=== PATIENT | male | born 1940 | race Caucasian/White ===

== ENCOUNTER 2022-08-02 14:26 | Emergency (ER) | payer MEDICARE, BC ==
[~2022-08-02] VITALS: Ht 177.8 cm; Wt 125.0 kg
[2022-08-02 15:32] LABS: BASOPHILS % (AUTO) 0.4 % (0-1); EOSINOPHILS # (AUTO) 0.3 X10'3 (0-0.9); EOSINOPHILS % (AUTO) 2.9 % (0-6); HEMATOCRIT 40.1 % (42.0-52.0); HEMOGLOBIN 13.3 g/dl (14.0-17.9); LYMPHOCYTES # (AUTO) 2.3 X10'3 (1.1-4.8); MEAN CORPUSCULAR HEMOGLOBIN 27.9 PG (27.0-31.0); MEAN CORPUSCULAR HGB CONC 33.3 g/dL (33.0-36.5); MEAN CORPUSCULAR VOLUME 83.8 FL (78-98); MONOCYTES # (AUTO) 0.6 X10'3 (0-0.9); MONOCYTES % (AUTO) 6.5 % (2-12); NEUTROPHILS # (AUTO) 5.4 X10'3 (1.8-7.7); NEUTROPHILS % (AUTO) 63.2 % (42-75); PLATELET COUNT 226 X10'3 (140-440); RED BLOOD COUNT 4.79 X10'6 (4.70-6.10); RED CELL DISTRIBUTION WIDTH 14.6 % (11.5-14.5); WHITE BLOOD COUNT 8.6 X10'3 (4.5-11.0)
[2022-08-02 15:43] LABS: ALANINE AMINOTRANSFERASE 35 U/L (12-78); ALBUMIN 3.8 G/DL (3.4-5.0); ALKALINE PHOSPHATASE 87 IU/L (46-116); ANION GAP 8 (8-16); ASPARTATE AMINO TRANSFERASE 30 U/L (10-37); BILIRUBIN,TOTAL 1.1 MG/DL (0.1-1.0); BLOOD UREA NITROGEN 13 MG/DL (7-18); BUN/CREATININE RATIO 10.7 (5.4-32.0); CALCIUM 8.7 MG/DL (8.5-10.1); CHLORIDE 103 MMOL/L (99-107); CREATININE 1.22 MG/DL (0.60-1.10); GLUCOSE 144 MG/DL (70-104); LIPASE 74 U/L (73-393); POTASSIUM 4.3 MMOL/L (3.5-5.1); SODIUM 137 MMOL/L (135-145); TOTAL CARBON DIOXIDE 26.4 MMOL/L (24-32); TOTAL PROTEIN 7.7 G/DL (6.4-8.2); eGFR 57 ML/MIN
[2022-08-02] MEDS ORDERED: LIDOCAINE 5% OINTMENT 35GM TP ONE (22:40)
[2022-08-02 22:55] VITALS: BP 174/74
== END 2022-08-02 23:13 | disposition home or self-care (01) ==
LOC: ER 14:27
DX: K92.1 Melena (principal)
CPT/HCPCS: 36415; 80053; 83690; 85025; 99284

== ENCOUNTER 2023-01-24 14:47 | Emergency (ER) | payer MEDICARE, BC ==
[~2023-01-24] VITALS: Ht 175.3 cm; Wt 113.2 kg
[2023-01-24 14:48] VITALS: BP 160/134
[2023-01-24] MEDS ORDERED: triamcinolone acetonide 40mg/ml inj IM ONE (15:15)
[2023-01-24] MEDS ORDERED: MOME45CR3 TOP (15:32)
--- NOTE | 2023-01-24 15:47 | NUR ---
PT PRESENTS TO THE ER WITH RASH TO BILATERAL FOREARMS, PT STATES " ITS VERY ITCHING TO TOUCH, KAILA HAD IT FOR ABOUT 2 YEARS, BUT I CANT SEE MY DRAW STRING KNOTTER ANYMORE"
== END 2023-01-24 15:48 | disposition home or self-care (01) ==
LOC: ER 14:48
DX: R21 Rash and other nonspecific skin eruption (principal)
CPT/HCPCS: 96372; 99283; J3301

== ENCOUNTER 2023-03-02 12:06 | Emergency (ER) | payer MEDICARE, BC ==
[~2023-03-02] VITALS: Ht 175.3 cm; Wt 104.5 kg
[~2023-03-02 12:06] MED LIST: MOME45CR3 TOP
[2023-03-02 12:34] LABS: EOSINOPHILS # (AUTO) 0.2 X10'3 (0-0.9); HEMOGLOBIN 13.6 g/dl (14.0-17.9); MEAN CORPUSCULAR VOLUME 84.6 FL (78-98); NEUTROPHILS # (AUTO) 5.4 X10'3 (1.8-7.7); RED CELL DISTRIBUTION WIDTH 15.7 % (11.5-14.5)
[2023-03-02 12:35] LABS: BASOPHILS % (AUTO) 0.1 % (0-1); HEMATOCRIT 41.8 % (42.0-52.0); LYMPHOCYTES # (AUTO) 2.2 X10'3 (1.1-4.8); MEAN CORPUSCULAR HEMOGLOBIN 27.4 PG (27.0-31.0); MEAN CORPUSCULAR HGB CONC 32.5 g/dL (33.0-36.5); MEAN PLATELET VOLUME 9.1 FL (7.4-10.4); MONOCYTES # (AUTO) 0.6 X10'3 (0-0.9); MONOCYTES % (AUTO) 7.1 % (2-12); NEUTROPHILS % (AUTO) 64.8 % (42-75); PLATELET COUNT 201 X10'3 (140-440); RED BLOOD COUNT 4.95 X10'6 (4.70-6.10); WHITE BLOOD COUNT 8.3 X10'3 (4.5-11.0)
[2023-03-02 12:53] LABS: ALANINE AMINOTRANSFERASE 23 U/L (12-78); ALBUMIN 3.2 G/DL (3.4-5.0); ALKALINE PHOSPHATASE 80 IU/L (46-116); ANION GAP 8 (8-16); ASPARTATE AMINO TRANSFERASE 16 U/L (10-37); BILIRUBIN,TOTAL 1.1 MG/DL (0.1-1.0); BLOOD UREA NITROGEN 16 MG/DL (7-18); BUN/CREATININE RATIO 11.5 (10.0-20.0); CALCIUM 8.7 MG/DL (8.5-10.1); CHLORIDE 103 MMOL/L (99-107); CREATININE 1.39 MG/DL (0.60-1.10); GLUCOSE 178 MG/DL (70-104); POTASSIUM 3.9 MMOL/L (3.5-5.1); SODIUM 137 MMOL/L (135-145); TOTAL CARBON DIOXIDE 26.4 MMOL/L (24-32); TOTAL PROTEIN 6.5 G/DL (6.4-8.2); eGFR 49 ML/MIN
[2023-03-02] MEDS ORDERED: normal saline 1000ML IV soln IVB ONE (13:10)
[2023-03-02 14:18] LABS: CLARITY,URINE CLEAR (Clear); COLOR,URINE YELLOW (Yellow); GLUCOSE, URINE NEGATIVE (Neg); KETONES,URINE NEGATIVE (Neg); LEUKOCYTE ESTERASE ,URINE NEGATIVE (Neg); NITRITES, URINE NEGATIVE (Neg); OCCULT BLOOD,URINE NEGATIVE (Neg); PROTEIN,URINE NEGATIVE (Neg); UROBILINOGEN,URINE 0.2 E.U/dL (0.2-1.0)
[2023-03-02 14:28] LABS: UA COLLECTION TYPE URINAL
[2023-03-02 14:32] LABS: MAGNESIUM 1.9 MG/DL (1.5-2.4); PHOSPHORUS 1.8 MG/DL (2.3-4.5)
[2023-03-02] MEDS ORDERED: piperacillin/tazo 3.375gm/50ml 50 ML IV ONE (15:20)
[2023-03-02 15:45] VITALS: BP 166/91
== END 2023-03-02 19:06 | disposition home or self-care (01) ==
LOC: ER 12:06
DX: R53.1 Weakness (principal); R11.0 Nausea; E11.9 Type 2 diabetes mellitus without complications
CPT/HCPCS: 36415; 71045; 80053; 81003; 82948; 83735; 83880; 84100; 84145; 84484; 85025; 93005; 99285; J7030; J7040

== ENCOUNTER 2023-08-09 11:00 | Emergency (ER) | payer MEDICARE, BC ==
[~2023-08-09] VITALS: Ht 175.3 cm; Wt 120.9 kg
[~2023-08-09 11:00] MED LIST changes: +AMI200T PO; +APIX2.5T PO; +COR3.125T PO; +DILT30TA2 PO; +FLO0.4C PO; +LEVO125T8 PO; -MOME45CR3 TOP
[2023-08-09 11:14] VITALS: BP 129/71; PULSE 106; RESP 18; TEMP 97.6; O2SAT 98
[2023-08-09 12:07] LABS: BASOPHILS # (AUTO) 0.1 X10'3 (0-0.2); BASOPHILS % (AUTO) 1.2 % (0-1); EOSINOPHILS # (AUTO) 0.3 X10'3 (0-0.9); EOSINOPHILS % (AUTO) 2.9 % (0-6); HEMATOCRIT 45.2 % (42.0-52.0); HEMOGLOBIN 14.7 g/dl (14.0-17.9); LYMPHOCYTES # (AUTO) 2.6 X10'3 (1.1-4.8); LYMPHOCYTES % (AUTO) 25.6 % (21-51); MEAN CORPUSCULAR HEMOGLOBIN 26.8 PG (27.0-31.0); MEAN CORPUSCULAR HGB CONC 32.6 g/dL (33.0-36.5); MEAN CORPUSCULAR VOLUME 82.3 FL (78-98); MEAN PLATELET VOLUME 9.6 FL (7.4-10.4); MONOCYTES % (AUTO) 9.2 % (2-12); NEUTROPHILS # (AUTO) 6.3 X10'3 (1.8-7.7); NEUTROPHILS % (AUTO) 61.1 % (42-75); PLATELET COUNT 267 X10'3 (140-440); RED BLOOD COUNT 5.49 X10'6 (4.70-6.10); RED CELL DISTRIBUTION WIDTH 15.7 % (11.5-14.5); WHITE BLOOD COUNT 10.3 X10'3 (4.5-11.0)
[2023-08-09 12:12] LABS: ALANINE AMINOTRANSFERASE 48 U/L (12-78); ALBUMIN 3.6 G/DL (3.4-5.0); ALBUMIN/GLOBULIN RATIO 0.9 (1.1-1.5); ALKALINE PHOSPHATASE 79 IU/L (46-116); ANION GAP 7 (8-16); ASPARTATE AMINO TRANSFERASE 38 U/L (10-37); BILIRUBIN,TOTAL 1.4 MG/DL (0.1-1.0); BLOOD UREA NITROGEN 42 MG/DL (7-18); BUN/CREATININE RATIO 19.2 (10.0-20.0); CALCIUM 9.3 MG/DL (8.5-10.1); CHLORIDE 93 MMOL/L (99-107); CREATININE 2.19 MG/DL (0.60-1.10); GLUCOSE 176 MG/DL (70-104); LIPASE 64 U/L (16-77); POTASSIUM 3.5 MMOL/L (3.5-5.1); SODIUM 128 MMOL/L (135-145); TOTAL CARBON DIOXIDE 27.6 MMOL/L (24-32); TOTAL PROTEIN 7.7 G/DL (6.4-8.2); eCRCL 25 ML/MIN; eGFR 29 ML/MIN
[2023-08-09] MEDS ORDERED: HYDR-3686 PO (12:56)
[2023-08-09] MEDS ORDERED: diphenhydrAMINE 50 mg/ml inj IM ONE (13:00)
== END 2023-08-09 13:30 | disposition home or self-care (01) ==
LOC: ER 11:00
DX: L29.9 Pruritus, unspecified (principal); E11.9 Type 2 diabetes mellitus without complications; Z79.899 Other long term (current) drug therapy
CPT/HCPCS: 36415; 80053; 83690; 85025; 96372; 99283; J1200